=== PATIENT | female | born 1970 | race Caucasian/White ===

== ENCOUNTER 2020-12-29 09:24 | Outpatient (CLI) | payer OTHER, SELFPAY ==
--- NOTE | 2020-12-29 09:30 | MM_ITS ---
WS: [id number] Bilateral screening digital mammogram, 12/29/2020 Clinical Data: SCREENING Comparison: 06/18/2019, 05/09/2017, 07/02/2016, 05/07/2016. Findings: The breast parenchymal pattern shows fibroglandular tissue. No spiculated masses or clustered calcifi cations are seen. There are no secondary signs of carcinoma. There are calcifications in the lateral aspect of the right breast which have been biopsied and were benign. There are large lymph nodes in b oth axilla. There is a mole marker on the right breast. MM/[id number] Impression: 1. Negative bilateral mammogram unchanged. 2. Recommend annual screening mammograms. BIRADS: 2-Benign FOLLOW UP: 1 Year Follow-up The CAD body design checker was used.
== END 2020-12-29 09:25 | disposition home or self-care (01) ==
LOC: RADSHAW 09:27
PROVIDERS: Family Provider Family Medicine; PCP Nurse Practitioner Family; Visit Provider Nurse Practitioner Family
DX: Z12.31 Encounter for screening mammogram for malignant neoplasm of breast (principal)
CPT/HCPCS: 77067

== ENCOUNTER → 2022-12-17 08:41 | Outpatient (BNVA) | payer OTHER, SELFPAY | PROVIDERS: Visit Provider Podiatrist Foot & Ankle Surgery | DX: M24.571 Contracture, right ankle (principal); M19.071 Primary osteoarthritis, right ankle and foot | CPT/HCPCS: 73630 ==

== ENCOUNTER 2023-02-28 08:16 | Outpatient (CLI) | payer OTHER, SELFPAY ==
--- NOTE | 2023-02-28 08:27 | MM_ITS ---
WS: [id number] BILATERAL SCREENING DIGITAL TOMOSYNTHESIS MAMMOGRAM WITH CAD HISTORY: SCREENING COMPARISON: 12/29/2020, 06/18/2019, 05/07/2016 Bilateral CC and MLO views with tomosynthesis and synthetic mammography submitted. Computer aided det ection analyzed. Breast composition: There are scattered areas of fibroglandular density. No suspicious masses, microc alcifications or architectural distortion. There are numerous calcifications within each breast. Dist ribution and number of calcifications greatest throughout the RIGHT breast. Breast biopsy has been pr eviously performed of the RIGHT breast calcifications. This was a benign process. New additional calc ifications may be difficult to visualize. IMPRESSION: MM/[id number] BI-RADS: 2-Benign FOLLOW UP: 1 Year Follow-up
== END 2023-02-28 08:17 | disposition home or self-care (01) ==
LOC: RAD 08:19 → MOBLMAM 08:26
PROVIDERS: PCP Nurse Practitioner Family; Visit Provider Nurse Practitioner Family
DX: Z12.31 Encounter for screening mammogram for malignant neoplasm of breast (principal)
CPT/HCPCS: 77063; 77067

== ENCOUNTER → 2023-12-12 11:08 | Outpatient (BNVA) | payer OTHER, SELFPAY | PROVIDERS: PCP Nurse Practitioner Family; Visit Provider Podiatrist Foot & Ankle Surgery | DX: M19.079 Primary osteoarthritis, unspecified ankle and foot | CPT/HCPCS: 73630 ==

== ENCOUNTER 2024-06-08 07:52 | Outpatient (CLI) | payer OTHER, SELFPAY ==
--- NOTE | 2024-06-08 07:54 | MM_ITS ---
WS: [id number] BILATERAL 3D TOMOSYNTHESIS DIGITAL SCREENING MAMMOGRAPHY WITH CAD CLINICAL INFORMATION: SCREENING HISTORY: Screening mammogram. No current complaints. COMPARISON: 2022 TECHNIQUE: Bilateral CC and MLO views. FINDINGS: Scattered fibroglandular densities bilaterally. No suspicious focal mass, asymmetry, calcifications, or architectural distortion. No evidence of malignancy. Diffuse fine punctate calcifications RIGHT gr eater than LEFT breast. Previous benign biopsy performed of the RIGHT breast calcifications. A few co arse punctate calcifications. Prominent fatty lymph nodes in the axilla similar to the prior examinat ions. MM/MM [facility] tomosynthesis [id number] IMPRESSION: DENSITY: There are scattered areas of fibroglandular density. BI-RADS: 2 - Benign. FOLLOW UP: 1 Year Follow-up Recommend return to annual screening mammography.
== END 2024-06-08 07:53 | disposition home or self-care (01) ==
LOC: RAD 07:52
PROVIDERS: PCP Nurse Practitioner Family; Visit Provider Nurse Practitioner Family
DX: Z12.31 Encounter for screening mammogram for malignant neoplasm of breast (principal); R92.323 Mammographic fibroglandular density, bilateral breasts; R92.1 Mammographic calcification found on diagnostic imaging of breast
CPT/HCPCS: 77063; 77067